=== PATIENT | female | born 1955 | race Caucasian/White ===

== ENCOUNTER → 2017-12-17 | Outpatient (CLI) | payer BC | END | disposition home or self-care (01) | LOC: US 07:02 | DX: I65.23 Occlusion and stenosis of bilateral carotid arteries (principal) | CPT/HCPCS: 93880 ==

== ENCOUNTER → 2019-10-27 | Outpatient (CLI) | payer MEDICARE, BC ==
[2015-11-17 04:45] VITALS: BP 164/80
[~2019-10-27] MED LIST: ACET500T68 PO; BUTA1CAP31 PO; CYCL5TAB PO; DICY10CA53 PO; IBUP-1027 PO; LEVO112T49 PO; OXYC5TAB4 PO
--- NOTE | 2019-10-27 11:30 | RAD ---
KNEE RIGHT 3V DATE: 10/27/2019 12:00 AM INDICATION: Acute knee pain COMPARISON: None. FINDINGS: Bones: There is no evidence of acute fracture or dislocation. Joints: Mild to moderate tricompartmental degenerative changes. Chondrocalcinosis of the menisci. Small joint effusion. Miscellaneous: None. IMPRESSION: 1. No acute osseous abnormality. 2. Mild to moderate tricompartmental degenerative changes. 3. Chondrocalcinosis of menisci, nonspecific but can be seen with CPPD arthropathy. Electronically signed by: Jaun Britt MD (10/27/2019 11:27 AM) [id number]
== END | disposition home or self-care (01) ==
LOC: RAD 10:04
PROVIDERS: ATTEND Family Medicine
DX: M17.11 Unilateral primary osteoarthritis, right knee (principal); M11.261 Other chondrocalcinosis, right knee
CPT/HCPCS: 73562

== ENCOUNTER → 2020-03-15 | Outpatient (CLI) | payer MEDICARE, BC ==
[2015-11-17 04:45] VITALS: BP 164/80
[~2020-03-15] MED LIST changes: +DICL75TA PO; +DULO40CA2 PO; +GABA600T7 PO; +METH-38 PO; +ROPI0.254 PO
== END ==
LOC: LAB 11:57
PROVIDERS: ATTEND Internal Medicine Gastroenterology
DX: Z01.812 Encounter for preprocedural laboratory examination (principal); Z86.010 Personal history of colon polyps; Z20.828 Contact with and (suspected) exposure to other viral communicable diseases
CPT/HCPCS: U0003-CS

== ENCOUNTER → 2020-03-19 | Day surgery (SDC) | payer MEDICARE, BC ==
[~2020-03-19] MED LIST changes: +LIDOCAINE 2% PF 5 ML VIAL. ONE; +PROPOFOL 10 MG/ML (20ML) VIAL. IV ONE
[2020-03-19] MEDS: IV RINGERS,LACTATED 1000ML 1,000 ML IV SCH (07:56)
[2020-03-19 09:10] VITALS: BP 104/61
--- NOTE | 2020-03-19 09:28 | HP ---
ADMIT DATE: 03/19/2020 UPDATED HISTORY AND PHYSICAL REFERRING PHYSICIAN: Mansi Martinez MD REASON: History of colon polyps. HISTORY OF PRESENT ILLNESS: A 64-year-old female whose past medical history which is significant for appendectomy, back surgery, , tonsillectomy, and tubal ligation as well as osteoarthrosis, hypothyroidism, is seen at interval colon exam, last exam did reveal colon polyps in 2014. There has been no change in bowel habits, diarrhea, constipation, melena and/or hematochezia. Weight and appetite are stable. She is otherwise without additional complaints. PAST MEDICAL HISTORY: COPD, hypothyroidism. ALLERGIES: None. MEDICATIONS: Include Fiorinal, diclofenac, gabapentin, ibuprofen, levothyroxine, Robaxin, oxycodone and Robinul. PAST SURGICAL HISTORY: Status post appendectomy, back surgery, , lung surgery, tonsillectomy, tubal ligation. She is 3, para 3. REVIEW OF SYSTEMS: Per records. PHYSICAL EXAMINATION: GENERAL: Reveals a well-nourished, well-developed female. VITAL SIGNS: Temperature is 97.2, pulse 79, respiratory rate is 20. LUNGS: Clear. CARDIOVASCULAR: S1, S2 without S3, S4 or appreciable murmur. ABDOMEN: Soft abdomen, normal bowel sounds, without appreciable hepatosplenomegaly. EXTREMITIES: No cyanosis, clubbing or edema. IMPRESSION AND PLAN: History of colonic polyps. Surveillance exam is recommended at this time. Risks and benefits of procedure including risk of hemorrhage and perforation requiring operation were discussed. The patient is willing to proceed. HAYLEY RO MD DR: LATONYA/quintin JOB#: [id number] / [id number] MANSI Leal MD
== END ==
LOC: ENDOS 07:02
PROVIDERS: ATTEND Internal Medicine Gastroenterology
DX: Z12.11 Encounter for screening for malignant neoplasm of colon (principal); K64.0 First degree hemorrhoids; M19.90 Unspecified osteoarthritis, unspecified site; E03.9 Hypothyroidism, unspecified; J44.9 Chronic obstructive pulmonary disease, unspecified; Z86.010 Personal history of colon polyps; Z87.891 Personal history of nicotine dependence; Z79.899 Other long term (current) drug therapy
CPT/HCPCS: G0105; J2704; 45378

== ENCOUNTER → 2021-04-05 | Outpatient (CLI) | payer MEDICARE, BC ==
[2020-03-19 09:10] VITALS: BP 104/61
[~2021-04-05] MED LIST changes: +IOHEXOL 240 MG/ML 50ML VIAL. PO ONE; +IOHEXOL 300 MG/ML 100ML VIAL. IV ONE; -LIDOCAINE 2% PF 5 ML VIAL. ONE; -PROPOFOL 10 MG/ML (20ML) VIAL. IV ONE
[2021-04-05 10:43] LABS: CREATININE 0.7 mg/dL (0.6-1.0); GFR 83.7
--- NOTE | 2021-04-05 13:55 | RAD ---
CT of the abdomen and pelvis with contrast 04/05/2021 1:49 PM Indication: Reason: ABNORMAL ABDOMINAL EXAM / Spl. Instructions: IV OMNI 300 75 MLS AND PO OMNI 240 50 MLS / History: Comparison study: CT abdomen and pelvis with contrast November 17, 2015 Technique: Multidetector CT imaging of the abdomen and pelvis was performed following the administrat ion of IV contrast. Findings: Mild right basilar atelectasis is noted. Lung bases demonstrate no other acute abnormality. Postoperative changes following operative fixation of multiple right ribs noted. Liver and gallbladder are unremarkable. Kidneys, adrenal glands, and spleen are unremarkable. Pancrea s is unremarkable. No evidence of bowel obstruction is identified. No acute inflammatory change invol ving the visualized bowel is identified. The appendix is surgically absent. Bladder is grossly unrema rkable. Significant free fluid or free air seen in the abdomen or pelvis. There is a severe levocurva ture of the thoracolumbar spine. No evidence of hernia is identified. Associated degenerative changes are noted. An acute osseous abnormalities is not identified. IMPRESSION: No evidence of acute intra-abdominal abnormality is identified. CT DOSING PQRS STATEMENT: One or more of the following individualized dose reduction techniques were utilized for this examinat ion: 1. Automated exposure control 2. Adjustment of the mA and/or kV according to patient size 3. Use of iterative reconstruction technique Electronically signed by: Jesus Delgado MD (04/05/2021 1:52 PM) [id number]
== END ==
LOC: CT 13:34
PROVIDERS: ATTEND Family Medicine
DX: R19.6 Halitosis (principal); J98.11 Atelectasis
CPT/HCPCS: 36415; 74177; 82565; Q9966; Q9967

== ENCOUNTER → 2021-04-15 | Outpatient (CLI) | payer MEDICARE, BC ==
[2020-03-19 09:10] VITALS: BP 104/61
[~2021-04-15] MED LIST changes: -IOHEXOL 240 MG/ML 50ML VIAL. PO ONE; -IOHEXOL 300 MG/ML 100ML VIAL. IV ONE
--- NOTE | 2021-04-16 15:05 | RAD ---
XR SCOLIOSIS STUDY History: Reason: DORSALGIA / Spl. Instructions: / History: Technique: 2 views thoracic lumbar spine. Comparison: None. Findings: Rightward curvature of the thoracic spine approximately 28 degrees leftward curvature of the lower th oracic and lumbar spine approximately 59 degrees. Stabilization rods within the thoracic spine. Inter nal fixation right clavicle and multiple ribs. Multilevel thoracolumbar spondylosis. Postop changes o verlying the pelvis. Impression: 1. S-shaped curvature of the thoracolumbar spine. Electronically signed by: Jason Schultz DO (04/16/2021 3:03 PM) ELBA
== END ==
LOC: RAD 15:19
PROVIDERS: ATTEND Family Medicine
DX: M47.815 Spondylosis without myelopathy or radiculopathy, thoracolumbar region (principal); M43.8X5 Other specified deforming dorsopathies, thoracolumbar region; Z98.890 Other specified postprocedural states
CPT/HCPCS: 72082

== ENCOUNTER → 2021-05-09 | Outpatient (CLI) | payer MEDICARE, BC ==
[2020-03-19 09:10] VITALS: BP 104/61
--- NOTE | 2021-05-09 16:10 | RAD ---
EXAMINATION: XR KNEE _3 VIEWS_LT CLINICAL HISTORY: Knee pain TECHNIQUE: XR KNEE _3 VIEWS_LT COMPARISON: None FINDINGS/ IMPRESSION: Moderate to severe degenerative changes in the lateral and to lesser extent medial compartments with chondrocalcinosis. No acute fracture. Small to moderate joint effusion with multiple partially calcif ied joint bodies. Electronically signed by: Josep Suarez DO (05/09/2021 4:07 PM) [id number]
== END ==
LOC: RAD 12:07
PROVIDERS: ATTEND Family Medicine
DX: M17.12 Unilateral primary osteoarthritis, left knee (principal); M11.262 Other chondrocalcinosis, left knee; M25.462 Effusion, left knee
CPT/HCPCS: 73562